=== PATIENT | female | born 1955 ===

== ENCOUNTER 2022-12-23 05:55 | Day surgery (SDC) | payer BC, OTHER ==
[2022-12-23] MEDS ORDERED: Dextrose 5%-0.45% NaCl 1,000 ML IV SCH (06:00)
[2022-12-23] MEDS ORDERED: fentaNYL 100 MCG/2 ML SDV ONE (06:21)
[2022-12-23] MEDS ORDERED: Midazolam 1 MG/ML 2 ML SDV ONE (06:22)
[2022-12-23] MEDS ORDERED: fentaNYL 100 MCG/2 ML SDV IVPUSH ONE (06:22)
[2022-12-23] MEDS ORDERED: Midazolam 1 MG/ML 2 ML SDV IVPUSH ONE (06:22)
[2022-12-23] MEDS ORDERED: fentaNYL 100 MCG/2 ML SDV IV ONE ×4 (07:12→07:27)
[2022-12-23] MEDS ORDERED: Midazolam 1 MG/ML 2 ML SDV IV ONE ×6 (07:13→07:24)
== END 2022-12-23 09:15 | disposition home or self-care (01) ==
LOC: DL.ENDO 05:55
PROVIDERS: ATTEND Internal Medicine Gastroenterology
DX: Z12.11 Encounter for screening for malignant neoplasm of colon (principal); D12.3 Benign neoplasm of transverse colon; K62.1 Rectal polyp; K57.30 Diverticulosis of large intestine without perforation or abscess without bleeding; I10 Essential (primary) hypertension; E66.09 Other obesity due to excess calories; Z88.0 Allergy status to penicillin; Z98.890 Other specified postprocedural states; Z68.35 Body mass index [BMI] 35.0-35.9, adult; Z80.0 Family history of malignant neoplasm of digestive organs
CPT/HCPCS: J2250; J3010; J7042